=== PATIENT | female | born 1980 | race African-American/Black ===

== ENCOUNTER 2018-07-12 09:07 | Observation (INO) | payer MEDICAID ==
[~2018-07-12] VITALS: Ht 162.6 cm; Wt 68.0 kg
[2018-07-12] MEDS ORDERED: ACETAMINOPHEN 325MG TABLET PO ONE (10:30)
[2018-07-12 10:39] VITALS: BP 106/68
[2018-07-12] MEDS ORDERED: PREN1TAB87 PO (11:10)
[2018-07-12] MEDS ORDERED: ACETAMINOPHEN 500MG TABLET PO ONE (11:45)
== END 2018-07-12 15:50 | disposition home or self-care (01) ==
LOC: ER 09:07 → L&D 10:45
PROVIDERS: ADMIT Specialist; ATTEND Specialist
DX: O26.893 Other specified pregnancy related conditions, third trimester (principal); M54.5 Low back pain; Z3A.36 36 weeks gestation of pregnancy
CPT/HCPCS: 76805; 99285; G0378

== ENCOUNTER 2019-06-20 06:41 | Inpatient (IN) | payer OTHER, MEDICAID ==
[~2019-06-20] VITALS: Ht 162.6 cm; Wt 64.0 kg
[~2019-06-20 06:41] MED LIST: PREN1TAB87 PO
[2019-06-20] MEDS ORDERED: ADENOSINE 3 MG/ML 2ML VIAL IV ONE ×2 (07:15)
[2019-06-20 08:55] LABS: BASOPHILS % 0.4 % (0.0-2.0); EOSINOPHILS % 1.8 % (0.0-5.0); HEMATOCRIT. 39.3 % (36.0-48.0); HEMOGLOBIN. 13.8 g/dL (12.0-16.0); LYMPHOCYTES % 36.9 % (20.0-50.0); MEAN CORPUSCULAR HEMOGLOBIN 30.5 pg (28.0-32.0); MEAN CORPUSCULAR VOLUME 86.6 fL (81.0-99.0); MEAN PLATELET VOLUME 9.1 fl (7.4-10.4); MONOCYTES % 7.1 % (2.0-8.0); NEUTROPHILS % 53.8 % (40.0-76.0); PLATELET 238 x1000/uL (130-400); RED BLOOD CELL COUNT 4.54 mill/uL (4.2-5.4); RED CELL DISTRIBUTION WIDTH 13.2 % (11.6-14.6)
[2019-06-20 09:01] LABS: CHLORIDE 111 mEq/L (98-107)
[2019-06-20 09:04] LABS: HCG SCREEN NEGATIVE
[2019-06-20] MEDS ORDERED: POTASSIUM CHLORIDE 20MEQ TABLET SR PO SCH (11:35)
[2019-06-20] MEDS: DILTIAZEM HCL 30MG TABLET PO SCH ×2 (12:00→18:00)
[2019-06-20 19:30] VITALS: BP 124/74
[2019-06-20] MEDS ORDERED: DILTIAZEM HCL 5MG/ML 5ML VIAL IV PRN (21:00)
[2019-06-20] MEDS ORDERED: LORAZEPAM 0.5MG TABLET PO PRN (21:15)
[2019-06-20] MEDS ORDERED: HYDROCODONE/ACETAMINOPHEN 5/325MG TABLET PO PRN (21:15)
[2019-06-20] MEDS ORDERED: ONDANSETRON HCL 4MG/2ML INJ IV PRN (21:15)
[2019-06-20] MEDS ORDERED: DOCUSATE SODIUM 100MG CAPSULE PO PRN (21:15)
[2019-06-20] MEDS ORDERED: IPRATROPIUM/ALBUTEROL 0.5-3(2.5)MG/3ML NEB INH PRN (21:15)
[2019-06-20] MEDS ORDERED: ACETAMINOPHEN 325MG TABLET PO PRN (21:15)
[2019-06-21] MEDS ORDERED: DILTIAZEM HCL 30MG TABLET PO SCH
== END 2019-06-20 22:15 | disposition left against medical advice (07) | DRG 201 ==
LOC: ER 06:41 → 6WST 09:19 → ENRESERV 20:30
PROVIDERS: ADMIT Internal Medicine; ATTEND Internal Medicine
DX: I47.1 Supraventricular tachycardia (principal); Z53.21 Procedure and treatment not carried out due to patient leaving prior to being seen by health care provider; Z79.899 Other long term (current) drug therapy; Z98.891 History of uterine scar from previous surgery
CPT/HCPCS: 36415; 71045; 83880; 84443; 84484; 84703; 93005; 96374; 99285; J0153

== ENCOUNTER 2019-06-21 10:08 | Emergency (ER) | payer MEDICAID ==
[~2019-06-21] VITALS: Ht 162.6 cm; Wt 64.0 kg
[2019-06-21 14:30] VITALS: BP 101/68
== END 2019-06-21 14:30 | disposition home or self-care (01) ==
LOC: ER 10:08
DX: I47.1 Supraventricular tachycardia (principal); Z98.890 Other specified postprocedural states
CPT/HCPCS: 93005; 99283

== ENCOUNTER 2021-01-25 11:18 | Emergency (ER) | payer MEDICAID ==
[~2021-01-25] VITALS: Ht 162.6 cm; Wt 64.0 kg
[2021-01-25] MEDS ORDERED: BACITRACIN ZINC OINT UDPKT TOP ONE (12:00)
[2021-01-25] MEDS ORDERED: LIDOCAINE HCL/PF 1% 10 MG/ML 5ML VIAL IJ ONE (12:00)
[2021-01-25] MEDS ORDERED: TETANUS, DIPHTHERIA, PERTUSSIS VAC/PF 0.5ML (>7YR OLD) IM ONE (12:00)
[2021-01-25 13:21] VITALS: BP 115/69
== END 2021-01-25 13:21 | disposition home or self-care (01) ==
LOC: ER 11:18
DX: S61.216A Laceration without foreign body of right little finger without damage to nail, initial encounter (principal); Z98.890 Other specified postprocedural states; W26.0XXA Contact with knife, initial encounter; Y93.89 Activity, other specified; Y92.018 Other place in single-family (private) house as the place of occurrence of the external cause
CPT/HCPCS: 99283; A4217; J3490; Z7610

== ENCOUNTER 2022-11-16 10:48 | Emergency (ER) | payer MEDICAID ==
[~2022-11-16] VITALS: Ht 162.6 cm; Wt 73.0 kg
[2022-11-16 11:12] VITALS: BP 123/81
[2022-11-16] MEDS ORDERED: INDO-13 MT ×2 (16:36)
[2022-11-16] MEDS ORDERED: COLC0.6C3 PO ×2 (16:36)
[2022-11-16] MEDS ORDERED: METHOCARBAMOL 500MG TABLET PO ONE (16:45)
[2022-11-16] MEDS ORDERED: ACETAMINOPHEN 325MG TABLET PO ONE (16:45)
[2022-11-16] MEDS ORDERED: IBUP-2029 MT (18:47)
[2022-11-16] MEDS ORDERED: METH-653 MT (18:47)
== END 2022-11-16 19:05 | disposition home or self-care (01) ==
LOC: ER 10:48
DX: M54.9 Dorsalgia, unspecified (principal); R94.31 Abnormal electrocardiogram [ECG] [EKG]; W01.0XXA Fall on same level from slipping, tripping and stumbling without subsequent striking against object, initial encounter; Y93.9 Activity, unspecified; Y92.9 Unspecified place or not applicable; Z98.890 Other specified postprocedural states
CPT/HCPCS: 71046; 81025; 93005; 99283